=== PATIENT | female | born 1960 | race Caucasian/White ===

== ENCOUNTER 2019-12-13 10:27 | Emergency (ER) | payer OTHER ==
--- NOTE | 2019-12-13 11:04 | RAD REPORT ---
EXAM DESCRIPTION: RAD - Chest Single View - 12/13/2019 10:57 am CLINICAL HISTORY: CHEST PAIN Chest pain. COMPARISON: Chest Single View dated 06/20/2018 FINDINGS: Portable technique limits examination quality. The lungs are grossly clear. The heart is normal in size. No displaced fractures. IMPRESSION: No acute intrathoracic process suspected.
[2019-12-13 11:19] LABS: Absolute Lymphocytes (CBC) 1.5 K/uL (0.7-4.9); Basophils % 0.5 % (0-1.3); Hematocrit 40.9 % (36.0-45.0); MPV 6.7 fL (7.6-11.3); Protime INR 1.03; RBC Red Blood Cell Count 4.38 M/uL (3.86-4.86)
[2019-12-13 11:40] LABS: ALT/SGPT 20 U/L (12-78); AST/SGOT 19 U/L (15-37); Albumin 4.1 g/dL (3.4-5.0); Alkaline Phosphatase 68 U/L (45-117); BUN Blood Urea Nitrogen 19 mg/dL (7-18); Bicarbonate 28 mmol/L (21-32); Bilirubin Direct 0.1 mg/dL (0-0.2); Bilirubin Total 0.4 mg/dL (0.2-1.0); Glucose Level 110 mg/dL (74-106); Magnesium 2.3 mg/dL (1.8-2.4); NT PRO-BNP 90 pg/mL (<125); Potassium 3.6 mmol/L (3.5-5.1); Protein, Total 7.2 g/dL (6.4-8.2); Sodium Level 142 mmol/L (136-145); Troponin (Emerg Dept Use Only) < 0.02 ng/mL (0.0-0.045)
--- NOTE | 2019-12-13 14:11 | EKG ---
Test Date: 2019-12-13 Test Time: 11:08:56 [employer] Supervisor: SARY MEASUREMENT RESULTS: Intervals: Rate: 69 OH: 144 QRSD: 84 QT: 410 QTc: 439 [place]: P: 83 OH: 144 QRS: 53 T: 84 INTERPRETIVE STATEMENTS: Normal sinus rhythm Low voltage QRS Borderline ECG Compared to ECG 06/20/2018 17:48:35 Sinus arrhythmia no longer present Electronically Signed On 12-13-19 14:10:12 CDT by Shade Khanna
--- NOTE | 2019-12-13 14:34 | EDPHYS ---
Physician Documentation [facility] Name: Devorah Neves Age: 59 yrs Sex: Female : 1960 Arrival Date: 12/13/2019 Time: 10:29 Bed 18 Private MD: ED Physician Perry Perales HPI: 12/12 12:59 This 59 yrs old Female presents to ER via Ambulatory with complaints of Chest ma2 Tightness, Back Pain. 12:59 The patient or guardian reports chest pain that is located primarily in the substernal ma2 area. Onset: gradually, 2 day(s) ago. Associated signs and symptoms: Pertinent negatives: cough, dizziness, lightheadedness, near syncope. The chest pain is described as burning. Severity of pain: At its worst the pain was very mild in the emergency department the pain is unchanged. The patient has not experienced similar symptoms in the past. constant chest pain x 2 days, trop and ekg negative i offered admission for acs rule out she does not want to be admitted i explained risk she want 2nd set of troponin only and she will return of chest pain recure or call 911. understand risk including mi and . . Historical: - Allergies: 10:50 No Known Allergies; ca1 - Home Meds: 10:50 Crestor 40 mg oral tab 1 tab once daily [Active]; sertraline 25 mg oral tab 1 tab once ca1 daily [Active]; - PMHx: 10:50 High Cholesterol; ca1 - PSHx: 10:50 Appendectomy; Tubal ligation; ca1 - Immunization history:: Adult Immunizations up to date, Flu vaccine is up to date. - Social history:: Smoking status: Patient denies any tobacco usage or history of. Patient/guardian denies using alcohol, street drugs, The patient lives with family, with spouse. - Family history:: not pertinent. ROS: 12:59 Constitutional: Negative for fever, chills, and weight loss. ma2 12:59 All other systems are negative. Exam: 12:59 Constitutional: This is a well developed, well nourished patient who is awake, alert, ma2 and in no acute distress. ENT: Nares patent. No nasal discharge, no septal abnormalities noted. Tympanic membranes are normal and external auditory canals are clear. Oropharynx with no redness, swelling, or masses, exudates, or evidence of obstruction, uvula midline. Mucous membranes moist. Chest/axilla: Normal chest wall appearance and motion. Nontender with no deformity. No lesions are appreciated. Cardiovascular: Regular rate and rhythm with a normal S1 and S2. No gallops, murmurs, or rubs. Normal PMI, no JVD. No pulse deficits. Respiratory: Lungs have equal breath sounds bilaterally, clear to auscultation and percussion. No rales, rhonchi or wheezes noted. No increased work of breathing, no retractions or nasal flaring. Abdomen/GI: Soft, non-tender, with normal bowel sounds. No distension or tympany. No guarding or rebound. No evidence of tenderness throughout. Vital Signs: 10:41 BP 137 / 68; Pulse 81; Resp 17 S; Temp 99.4(O); Pulse Ox 100% on R/A; Weight 62.6 kg ca1 (R); Height 5 ft. 7 in. (170.18 cm) (R); Pain 2/10; 11:32 BP 111 / 58; Pulse 70; Resp 19 S; Pulse Ox 100% on R/A; ca1 12:35 BP 120 / 65; Pulse 88; Resp 14 S; Pulse Ox 93% on R/A; ca1 13:10 BP 117 / 63; Pulse 82; Resp 16 S; Pulse Ox 98% on R/A; ca1 14:02 BP 114 / 71; Pulse 78; Resp 16 S; Pulse Ox 100% on R/A; ca1 14:54 BP 112 / 87; Pulse 72; Resp 16 S; Pulse Ox 100% on R/A; ca1 10:41 Body Mass Index 21.61 (62.60 kg, 170.18 cm) ca1 MDM: 10:32 Patient medically screened. ma2 12:59 Differential diagnosis: gastritis, gastroesophageal reflux disease (GERD), pneumonia, ma2 pneumothorax. The patient was not given aspirin in the Emergency Department. The patient's pulmonary embolism risk score was calculated as follows: No Risks (0 Pts). SOFIA Risk Score: TOTAL SCORE = 0. Data reviewed: vital signs, nurses notes. Counseling: I had a detailed discussion with the patient and/or guardian regarding: the historical points, exam findings, and any diagnostic results supporting the discharge/admit diagnosis, the presence of at least one elevated blood pressure reading (>120/80) during this emergency department visit, the need for outpatient follow up. 14:32 ED course: no drug seeking per nurse practitioner physician assistant aware . 12/12 10:34 Order name: Basic Metabolic Panel; Complete Time: 11:55 12/12 10:34 Order name: CBC with Diff; Complete Time: 11:55 12/12 10:34 Order name: LFT's; Complete Time: 11:55 12/12 10:34 Order name: Magnesium; Complete Time: 11:55 12/12 10:34 Order name: NT PRO-BNP; Complete Time: 11:55 12/12 10:34 Order name: PT-INR; Complete Time: 11:55 12/12 10:34 Order name: Troponin (emerg Dept Use Only); Complete Time: 11:55 12/12 10:34 Order name: XRAY Chest (1 view); Complete Time: 11:55 12/12 10:34 Order name: EKG; Complete Time: 10:35 12/12 10:34 Order name: Cardiac monitoring; Complete Time: 11:07 12/12 10:34 Order name: EKG - Nurse/Tech; Complete Time: 11:08 12/12 10:34 Order name: IV Saline Lock; Complete Time: 11:08 12/12 10:34 Order name: Labs collected and sent; Complete Time: 11:08 12/12 12:17 Order name: Troponin (emerg Dept Use Only): repeat troponin at 2 pm please; Complete ma2 Time: 14:32 12/12 10:34 Order name: O2 Per Protocol; Complete Time: 11:08 12/12 10:34 Order name: O2 Sat Monitoring; Complete Time: 11:08 ma Administered Medications: No medications were administered Disposition: 12/13/19 14:32 Discharged to Home. Impression: Chest pain, unspecified. - Condition is Stable. - Discharge Instructions: Nonspecific Chest Pain. - Prescriptions for Tylenol- Codeine #3 300-30 mg Oral Tablet - take 2 tablet by ORAL route every 6 hours As needed; 30 tablet. - Medication Reconciliation Form, Thank You Letter, Antibiotic Education, Prescription Opioid Use form. - Follow up: Private Physician; When: Tomorrow; Reason: Continuance of care. Signatures: Dispatcher [employer] EDPerry Martinez MD MD ma2 Jenny Valdez RN RN ca1 Corrections: (The following items were deleted from the chart) 14:56 14:32 12/13/2019 14:32 Discharged to Home. Impression: Chest pain, unspecified. ca1 Condition is Stable. Forms are Medication Reconciliation Form, Thank You Letter, Antibiotic Education, Prescription Opioid Use. Follow up: Private Physician; When: Tomorrow; Reason: Continuance of care. arlette
--- NOTE | 2019-12-13 14:34 | ER ---
Nurse's Notes [facility] Name: Devorah Neves Age: 59 yrs Sex: Female : 1960 Arrival Date: 12/13/2019 Time: 10:29 Bed 18 Private MD: Diagnosis: Chest pain, unspecified Presentation: 12/12 10:41 Chief complaint: Patient states: chest tightness radiating to the back that started ca1 this morning. Went to PCP, did EKG and Flu tests, results were negative but was sent to ER for persistent chest tightness and for blood works. Denies cough, fever, N/V/D. Given albuterol inhaler [employer] by PCP. Coronavirus screen: The patient has NOT traveled to a country currently being monitored by the [facility] within the last 14 days. The patient has NOT had contact with any known and/or suspected case of coronavirus. Ebola Screen: Patient negative for fever greater than or equal to 101.5 degrees Fahrenheit, and additional compatible Ebola Virus Disease symptoms Patient denies exposure to infectious person. Patient denies travel to an Ebola-affected area in the 21 days before illness onset. No symptoms or risks identified at this time. Initial Sepsis Screen: Does the patient meet any 2 criteria? No. Patient's initial sepsis screen is negative. Does the patient have a suspected source of infection? No. Patient's initial sepsis screen is negative. Risk Assessment: Do you want to hurt yourself or someone else? Patient reports no desire to harm self or others. Onset of symptoms was December 13, 2019. Care prior to arrival: None. Medication(s) given:. 10:41 Method Of Arrival: Ambulatory ca1 10:41 Acuity: HUGH 3 ca1 Triage Assessment: 10:50 General: Appears in no apparent distress. comfortable, Behavior is calm, cooperative, ca1 appropriate for age. Pain: Complains of pain in chest Pain radiates to back Pain currently is 2 out of 10 on a pain scale. at worst was 4 out of 10 on a pain scale. Quality of pain is described as tightness Pain began 4 hours ago. Is intermittent. EENT: No signs and/or symptoms were reported regarding the EENT system. Neuro: Level of Consciousness is awake, alert, obeys commands, Oriented to person, place, time, situation, Appropriate for age. Cardiovascular: Heart tones S1 S2 present Capillary refill < 3 seconds Patient's skin is warm and dry. Rhythm is sinus rhythm. Respiratory: Airway is patent Respiratory effort is even, unlabored, Respiratory pattern is regular, symmetrical, Breath sounds are clear bilaterally. Denies cough. GI: Abdomen is flat, non-distended, Bowel sounds present X 4 quads. Abd is soft and non tender X 4 quads. : No signs and/or symptoms were reported regarding the genitourinary system. Derm: Skin is intact, is healthy with good turgor, Skin is pink, warm \T\ dry. Musculoskeletal: Circulation, motion, and sensation intact. Capillary refill < 3 seconds. Historical: - Allergies: 10:50 No Known Allergies; ca1 - Home Meds: 10:50 Crestor 40 mg oral tab 1 tab once daily [Active]; sertraline 25 mg oral tab 1 tab once ca1 daily [Active]; - PMHx: 10:50 High Cholesterol; ca1 - PSHx: 10:50 Appendectomy; Tubal ligation; ca1 - Immunization history:: Adult Immunizations up to date, Flu vaccine is up to date. - Social history:: Smoking status: Patient denies any tobacco usage or history of. Patient/guardian denies using alcohol, street drugs, The patient lives with family, with spouse. - Family history:: not pertinent. Screenin:53 Abuse screen: Denies threats or abuse. Denies injuries from another. Nutritional ca1 screening: No deficits noted. Tuberculosis screening: No symptoms or risk factors identified. Fall Risk IV access (20 points). Assessment: 10:53 Reassessment: SEE TRIAGE ASSESSMENT. Pain: Complains of pain in chest Pain radiates to ca1 back Pain currently is 2 out of 10 on a pain scale. Pain began 4 hours ago. Is intermittent. 11:32 Reassessment: Patient appears in no apparent distress at this time. No changes from ca1 previously documented assessment. Patient and/or family updated on plan of care and expected duration. Pain level reassessed. Patient is alert, oriented x 3, equal unlabored respirations, skin warm/dry/pink. 12:35 Reassessment: Patient appears in no apparent distress at this time. Patient and/or ca1 family updated on plan of care and expected duration. Pain level reassessed. Patient is alert, oriented x 3, equal unlabored respirations, skin warm/dry/pink. 13:10 Reassessment: Patient appears in no apparent distress at this time. No changes from ca1 previously documented assessment. Patient and/or family updated on plan of care and expected duration. Pain level reassessed. Patient is alert, oriented x 3, equal unlabored respirations, skin warm/dry/pink. Pending repeat Trop at 1400. 14:02 Reassessment: Patient appears in no apparent distress at this time. Patient and/or ca1 family updated on plan of care and expected duration. Pain level reassessed. Patient is alert, oriented x 3, equal unlabored respirations, skin warm/dry/pink. 14:54 Reassessment: Patient appears in no apparent distress at this time. Patient is alert, ca1 oriented x 3, equal unlabored respirations, skin warm/dry/pink. Vital Signs: 10:41 BP 137 / 68; Pulse 81; Resp 17 S; Temp 99.4(O); Pulse Ox 100% on R/A; Weight 62.6 kg ca1 (R); Height 5 ft. 7 in. (170.18 cm) (R); Pain 2/10; 11:32 BP 111 / 58; Pulse 70; Resp 19 S; Pulse Ox 100% on R/A; ca1 12:35 BP 120 / 65; Pulse 88; Resp 14 S; Pulse Ox 93% on R/A; ca1 13:10 BP 117 / 63; Pulse 82; Resp 16 S; Pulse Ox 98% on R/A; ca1 14:02 BP 114 / 71; Pulse 78; Resp 16 S; Pulse Ox 100% on R/A; ca1 14:54 BP 112 / 87; Pulse 72; Resp 16 S; Pulse Ox 100% on R/A; ca1 10:41 Body Mass Index 21.61 (62.60 kg, 170.18 cm) ca1 ED Course: 10:29 Patient arrived in ED. ag5 10:32 Perry Perales MD is Attending Physician. ma2 10:40 Jenny Valdez RN is Primary Nurse. ca1 10:44 Triage completed. ca1 10:50 Arm band placed on right wrist. ca1 10:53 Patient has correct armband on for positive identification. Placed in gown. Bed in low ca1 position. Call light in reach. Side rails up X 1. tree girdler on. Pulse ox on. NIBP on. Warm blanket given. 10:54 Patient maintains SpO2 saturation greater than 95% on room air. ca1 10:57 XRAY Chest (1 view) In Process Unspecified. EDMS 11:06 No provider procedures requiring assistance completed. Inserted saline lock: 22 gauge ca1 in left antecubital area, using aseptic technique. Blood collected. 11:06 Initial lab(s) drawn, by me, sent to lab. ca1 11:21 EKG done, by ED staff, reviewed by Perry Perales MD. em1 14:03 Repeat lab(s) drawn. by me, sent to lab. ca1 14:55 IV discontinued, intact, bleeding controlled, No redness/swelling at site. Pressure ca1 dressing applied. Administered Medications: No medications were administered Outcome: 14:32 Discharge ordered by . ma2 14:55 Discharged to home ambulatory, with significant other. ca1 14:55 Condition: stable 14:55 Discharge instructions given to patient, Instructed on discharge instructions, follow up and referral plans. no drinking with medication, no driving heavy equipment, medication usage, Demonstrated understanding of instructions, follow-up care, medications, Prescriptions given X 1. 14:56 Patient left the ED. ca1 Signatures: Dispatcher [employer] EDMS Harrison Alonzo em1 Perry Perales MD MD ma2 Jenny Valdez RN RN ca1 [place] Nava ag5 Corrections: (The following items were deleted from the chart) 14:04 11:06 Inserted saline lock: 22 gauge in left antecubital area, using aseptic technique. ca1 Blood collected. ca1
[2019-12-13 15:13] VITALS: TEMP 99.4
[2019-12-13 15:19] VITALS: O2SAT 100
[2019-12-13 15:20] VITALS: BP 112/87
== END 2019-12-13 14:56 | disposition home or self-care (01) ==
LOC: ER 10:27
DX: R07.9 Chest pain, unspecified (principal); E78.00 Pure hypercholesterolemia, unspecified
CPT/HCPCS: 36415; 71045; 80048; 80076; 83735; 83880; 84484; 85025; 85610; 93005; 99285

== ENCOUNTER 2020-03-28 15:02 | Emergency (ER) | payer OTHER ==
[2020-03-28] MEDS ORDERED: LIDOCAINE VISCOUS 2% SOLN 15 ML UDC ONE (16:06)
[2020-03-28] MEDS ORDERED: MAGNE/ALUM HYDROXD 30 ML UCUP ONE (16:06)
[2020-03-28] MEDS ORDERED: ONDANSETRON 4 MG (ODT) TAB ONE (17:48)
--- NOTE | 2020-03-28 18:45 | EDPHYS ---
Physician Documentation [facility] Name: Devorah Neves Age: 59 yrs Sex: Female : 1960 Arrival Date: 03/28/2020 Time: 15:05 Bed 16 Private MD: ED Physician Terry Mccann HPI: 03/28 15:45 This 59 yrs old Female presents to ER via Ambulatory with complaints of kdr lightheaded, feels like food is lodged. 15:45 The patient presents with dysphagia, of both solids and liquids, a foreign body kdr sensation in the throat. The patient describes throat pain as scratchy, Very mild, just doesn't feel right after she ate a [employer] sandwich. States that by habit she chews her food extensively and is able to swallow her secretions/saliva.. Onset: The symptoms/episode began/occurred suddenly, just prior to arrival. Severity of symptoms: At their worst the symptoms were very mild, in the emergency department the symptoms are unchanged. Modifying factors: The symptoms are alleviated by nothing, the symptoms are aggravated by nothing, Patient's oral intake status: good. Associated signs and symptoms: The patient has no apparent associated signs or symptoms. The patient has not experienced similar symptoms in the past. The patient has not recently seen a physician. Historical: - Allergies: 15:19 No Known Allergies; ll1 - PMHx: 15:19 High Cholesterol; ll1 - PSHx: 15:19 Appendectomy; Tubal ligation; ll1 - Immunization history:: Adult Immunizations up to date. - Social history:: Smoking status: Patient denies any tobacco usage or history of. Patient/guardian denies using alcohol, street drugs, tobacco products. ROS: 15:45 Constitutional: Negative for fever, chills, and weight loss, Eyes: Negative for injury, kdr pain, redness, and discharge, ENT: Negative for injury, pain, and discharge, Cardiovascular: Negative for chest pain, palpitations, and edema, Respiratory: Negative for shortness of breath, cough, wheezing, and pleuritic chest pain, Abdomen/GI: Negative for abdominal pain, nausea, vomiting, diarrhea, and constipation, Back: Negative for injury and pain, : Negative for injury, bleeding, discharge, and swelling, MS/Extremity: Negative for injury and deformity, Skin: Negative for injury, rash, and discoloration, Psych: Negative for depression, anxiety, suicide ideation, homicidal ideation, and hallucinations, Allergy/Immunology: Negative for hives, rash, and allergies, Endocrine: Negative for neck swelling, polydipsia, polyuria, polyphagia, and marked weight changes, Hematologic/Lymphatic: Negative for swollen nodes, abnormal bleeding, and unusual bruising. 15:45 Neuro: Positive for dizziness, Had two brief episodes. Exam: 15:45 Constitutional: This is a well developed, well nourished patient who is awake, alert, kdr and in no acute distress. Head/Face: Normocephalic, atraumatic. Eyes: Pupils equal round and reactive to light, extra-ocular motions intact. Lids and lashes normal. Conjunctiva and sclera are non-icteric and not injected. Cornea within normal limits. Periorbital areas with no swelling, redness, or edema. Neck: Trachea midline, no thyromegaly or masses palpated, and no cervical lymphadenopathy. Supple, full range of motion without nuchal rigidity, or vertebral point tenderness. No Meningismus. Chest/axilla: Normal chest wall appearance and motion. Nontender with no deformity. No lesions are appreciated. Cardiovascular: Regular rate and rhythm with a normal S1 and S2. No gallops, murmurs, or rubs. Normal PMI, no JVD. No pulse deficits. Respiratory: Lungs have equal breath sounds bilaterally, clear to auscultation and percussion. No rales, rhonchi or wheezes noted. No increased work of breathing, no retractions or nasal flaring. Abdomen/GI: Soft, non-tender, with normal bowel sounds. No distension or tympany. No guarding or rebound. No evidence of tenderness throughout. Back: No spinal tenderness. No costovertebral tenderness. Full range of motion. Skin: Warm, dry with normal turgor. Normal color with no rashes, no lesions, and no evidence of cellulitis. MS/ Extremity: Pulses equal, no cyanosis. Neurovascular intact. Full, normal range of motion. Neuro: Awake and alert, GCS 15, oriented to person, place, time, and situation. Cranial nerves II-XII grossly intact. Motor strength 5/5 in all extremities. Sensory grossly intact. Cerebellar exam normal. Normal gait. Psych: Awake, alert, with orientation to person, place and time. Behavior, mood, and affect are within normal limits. Vital Signs: 15:16 BP 139 / 99; Pulse 82; Resp 17; Temp 98.6; Pulse Ox 100% ; Pain 0/10; ll1 16:00 BP 131 / 78; Pulse 87; Resp 18; Pulse Ox 100% on R/A; vc 17:00 BP 118 / 77; Pulse 74; Resp 17; Pulse Ox 100% on R/A; vc 18:00 BP 129 / 81; Pulse 69; Resp 17; Pulse Ox 100% on R/A; vc MDM: 18:43 Patient medically screened. kdr 07 15:41 Data reviewed: vital signs, nurses notes, lab test result(s), radiologic studies. kdr Counseling: I had a detailed discussion with the patient and/or guardian regarding: the historical points, exam findings, and any diagnostic results supporting the discharge/admit diagnosis, lab results, radiology results, the need for outpatient follow up. Administered Medications: 03/28 16:05 Drug: GI Cocktail without - (Maalox Suspension 30 ml, Lidocaine Liquid 2 % 15 vc ml) Route: PO; 18:01 Follow up: Response: No adverse reaction; Marked relief of symptoms vc 17:41 Drug: Zofran (Ondansetron) 4 mg Route: PO; ll1 18:01 Follow up: Response: No adverse reaction; Nausea is decreased vc Disposition: 03/28/20 18:43 Discharged to Home. Impression: Dysphagia, Nausea. - Condition is Stable. - Discharge Instructions: Dysphagia, Nausea, Adult, [id number]. - Prescriptions for Zofran 4 mg Oral Tablet - take 1 tablet by ORAL route every 4-6 hours As needed; 12 tablet. - Medication Reconciliation Form, Thank You Letter form. - Follow up: Private Physician; When: 2 - 3 days; Reason: If symptoms return, Further diagnostic work-up, Recheck today's complaints, Continuance of care, Re-evaluation by your physician. Follow up: Brannon Sanchez MD; When: 2 - 3 days; Reason: If symptoms return, Further diagnostic work-up, Recheck today's complaints, Continuance of care, Re-evaluation by your physician. - Problem is new. - Symptoms are resolved. Signatures: Terry Mccann MD MD kdr Megan Guthrie RN RN vc Lila Shen RN RN ll1 Corrections: (The following items were deleted from the chart) 18:58 18:43 03/28/2020 18:43 Discharged to Home. Impression: Dysphagia; Nausea. Condition is vc Stable. Forms are Medication Reconciliation Form, Thank You Letter, Antibiotic Education, Prescription Opioid Use. Follow up: Private Physician; When: 2 - 3 days; Reason: If symptoms return, Further diagnostic work-up, Recheck today's complaints, Continuance of care, Re-evaluation by your physician. Follow up: Brannon Sanchez; When: 2 - 3 days; Reason: If symptoms return, Further diagnostic work-up, Recheck today's complaints, Continuance of care, Re-evaluation by your physician. Problem is new. Symptoms are resolved. kdr
--- NOTE | 2020-03-28 18:45 | ER ---
Nurse's Notes [facility] Name: Devorah Neves Age: 59 yrs Sex: Female : 1960 Arrival Date: 03/28/2020 Time: 15:05 Bed 16 Private MD: Diagnosis: Dysphagia;Nausea Presentation: 03/28 15:16 Chief complaint: Patient states: After eating lunch today at work, she started to have ll1 a tightening feeling in upper throat. Almost like something was in her esophagus. Denies coughing/choking while eating. States it traveled down her throat to mid chest area. No SOB or vomiting. + dry mouth. No fever or cough. Strange, weird feeling so her made her come and get checked out. Coronavirus screen: Proceed with normal triage. Patient denies a cough. Patient denies shortness of breath or difficulty breathing. Patient denies measured and/or subjective temperature greater than 100.4F prior to today's visit. Patient denies travel on a cruise ship or to a country the [facility] currently lists as an affected area. Patient denies contact with known and/or suspected case of COVID-19. Ebola Screen: Patient denies travel to an Ebola-affected area in the 21 days before illness onset. Initial Sepsis Screen: Does the patient meet any 2 criteria? No. Patient's initial sepsis screen is negative. Risk Assessment: Do you want to hurt yourself or someone else? Patient reports no desire to harm self or others. Onset of symptoms was March 28, 2020. 15:16 Method Of Arrival: Ambulatory ll1 15:16 Acuity: HUGH 3 ll1 15:40 Initial Sepsis Screen: Does the patient have a suspected source of infection? No. vc Patient's initial sepsis screen is negative. Triage Assessment: 15:40 General: Appears in no apparent distress. comfortable, slender, well groomed, Behavior vc is cooperative, appropriate for age, anxious. Pain: Complains of pain in right aspect of thyroid, left aspect of thyroid and suprasternal notch Pain does not radiate. Pain began gradually. EENT: Reports "feels like I have food stuck in my throat". Historical: - Allergies: 15:19 No Known Allergies; ll1 - PMHx: 15:19 High Cholesterol; ll1 - PSHx: 15:19 Appendectomy; Tubal ligation; ll1 - Immunization history:: Adult Immunizations up to date. - Social history:: Smoking status: Patient denies any tobacco usage or history of. Patient/guardian denies using alcohol, street drugs, tobacco products. Screenin:40 Abuse screen: Denies threats or abuse. Nutritional screening: No deficits noted. vc Tuberculosis screening: No symptoms or risk factors identified. Fall Risk None identified. Assessment: 15:40 General: Appears in no apparent distress. uncomfortable, slender, well groomed, vc Behavior is cooperative, appropriate for age, anxious. Neuro: Level of Consciousness is awake, alert, obeys commands, Oriented to person, place, time, Speech is normal. Cardiovascular: Capillary refill < 3 seconds Patient's skin is warm and dry. Cardiovascular: Reports lightheadedness. Respiratory: Airway is patent Respiratory effort is even, unlabored, Respiratory pattern is regular, symmetrical. GI: No signs and/or symptoms were reported involving the gastrointestinal system. : No signs and/or symptoms were reported regarding the genitourinary system. Derm: Skin is intact, is healthy with good turgor. 16:40 Reassessment: Patient appears in no apparent distress at this time. Patient and/or vc family updated on plan of care and expected duration. Pain level reassessed. Patient is alert, oriented x 3, equal unlabored respirations, skin warm/dry/pink. Patient states feeling better. 17:40 Reassessment: Patient appears in no apparent distress at this time. Patient and/or vc family updated on plan of care and expected duration. Pain level reassessed. Patient is alert, oriented x 3, equal unlabored respirations, skin warm/dry/pink. Patient states feeling better. Patient states symptoms have improved. 18:02 Reassessment: STATES NAUSEA HAS WENT AWAY. vc Vital Signs: 15:16 BP 139 / 99; Pulse 82; Resp 17; Temp 98.6; Pulse Ox 100% ; Pain 0/10; ll1 16:00 BP 131 / 78; Pulse 87; Resp 18; Pulse Ox 100% on R/A; vc 17:00 BP 118 / 77; Pulse 74; Resp 17; Pulse Ox 100% on R/A; vc 18:00 BP 129 / 81; Pulse 69; Resp 17; Pulse Ox 100% on R/A; vc ED Course: 15:05 Patient arrived in ED. as 15:11 Terry Mccann MD is Attending Physician. kdr 15:19 Triage completed. ll1 15:19 Megan Guthrie, RN is Primary Nurse. vc 15:19 Arm band placed on Patient placed in an exam room, on a stretcher. ll1 15:40 Patient has correct armband on for positive identification. Bed in low position. Call vc light in reach. Pulse ox on. NIBP on. 18:43 Brannon Sanchez MD is Referral Physician. kdr 18:57 No provider procedures requiring assistance completed. Patient did not have IV access vc during this emergency room visit. Administered Medications: 16:05 Drug: GI Cocktail without - (Maalox Suspension 30 ml, Lidocaine Liquid 2 % 15 vc ml) Route: PO; 18:01 Follow up: Response: No adverse reaction; Marked relief of symptoms vc 17:41 Drug: Zofran (Ondansetron) 4 mg Route: PO; ll1 18:01 Follow up: Response: No adverse reaction; Nausea is decreased vc Outcome: 18:43 Discharge ordered by . kdr 18:57 Discharged to home ambulatory. vc 18:57 Condition: improved 18:57 Discharge instructions given to patient, Instructed on discharge instructions, follow up and referral plans. medication usage, Demonstrated understanding of instructions, follow-up care, medications, Prescriptions given X 1. 18:58 Patient left the ED. vc Signatures: Terry Mccann MD MD kdr Rosmery Alonzo as Megan Guthrie, RN RN vc Lila Shen RN RN ll1
[2020-03-28 19:03] VITALS: TEMP 98.6; O2SAT 100
[2020-03-28 19:07] VITALS: BP 129/81
== END 2020-03-28 18:58 | disposition home or self-care (01) ==
LOC: ER 15:02
DX: R11.0 Nausea (principal)
CPT/HCPCS: 99283